=== PATIENT | male | born 1955 | race Caucasian/White ===

== ENCOUNTER → 2018-04-28 09:37 | Outpatient (RCR) | payer OTHER ==
--- NOTE | 2018-04-21 11:52 | PT INITIAL EVALUATION ---
MEDICAL DIAGNOSIS: Vertigo TREATMENT DIAGNOSIS: Same DATE OF ONSET: 10/20/17 SUBJECTIVE: Greg presents to physical therapy with complaints of vertigo that started approximately 6-8 months ago. He reports that the spinning occurs when getting up from the floor and looking up. He reports that the dizziness last for approximately 10-15 seconds and then resolves itself. Furthermore, he reports that it makes him feel wheezy following an episode of dizziness. REHAB PROBLEM LIST: Decreased Function Decreased ADL's PREVIOUS MEDICAL HISTORY: See EMR OCCUPATION: [place] [employer] of [employer] OBJECTIVE: Special Tests: Special Tests: (-) OCULOMOTOR/VESTIBULAR TESTING: Spontaneous Nystagmus: Absent VOR Head Thrust (horizontal canal function): R: Negative, L: Negative Gaze- Evoked Nystagmus with fixation present:Absent VOR Head Thrust (posterior canal function): R: negative, L: negative Posterior Horizontal Head-Shaking Nystagmus ( - ) Gaze-Evoked Nystagmus with fixation suppressed: absent Smooth Pursuit Saccades VOR Cancellation: Normal POSITIONING TEST: Left Hallpike - Right Hallpike - Roll Test R: +, L: + Mobility: Independent ASSESSMENT: Greg will benefit from skilled physical therapy addressing the listed impairments to improve function and QOL. Based on his examination, it appears that his L and R horizontal canals are affected. He is independent on his home exercise program and we will see him next week for a follow up visit. Short Term Goals 3 weeks: Pt will be able to move his head into cervical extension, cervical rotation to the R and L, and get up from the floor with 0/10 dizziness to improve function and QOL. 3 weeks: Pt will be able to perform supine to sit to standing transfers and ambulate with 0/10 dizziness to improve function and QOL. Patient's Goals get off the floor without any spinning PLAN: Patient to be seen for Neuromuscular Re-ed Home Exercise Program 2x/Week for 3 weeks If you have any questions, comments, or concerns about this report or plan, please contact me at . Thank you, Luke Valdes, PT, DPT [facility]
[~2018-04-28 09:37] MED LIST: BACDS PO; CYCL10TA29 PO; IBU600 PO; LOR5/325 PO; METH4TAB66 PO; MULT1CAP53 PO; MULT1CAP59 PO; PEN250L PO; PER PO; SAW/1TAB2; vit D3
--- NOTE | 2018-04-28 16:46 | PT PLAN OF CARE ---
Physician: Direct Access Patient is being seen: X 2 visits Therapist: Luke Valdes PT, [facility] Medical Diagnosis: Vertigo Treatment Diagnosis: Same Date of Onset: 10/20/17 Date of Initial Evaluation: 04/21/18 Date patient was last seen: 04/28/18 Number of treatments: 2 Number of cancellations/No shows: 0 INTERVENTIONS: Neuromuscular Re-ed Home Exercise Program GOALS: 3 weeks: Pt will be able to move his head into cervical extension, cervical rotation to the R and L, and get up from the floor with 0/10 dizziness to improve function and QOL. MET 3 weeks: Pt will be able to perform supine to sit to standing transfers and ambulate with 0/10 dizziness to improve function and QOL. MET PATIENT'S GOAL: get off the floor without any spinning: MET Status of Patient's Goals: Met Patient Compliance: Excellent Prognosis: Excellent Reasons for continuing therapy: This is a discharge note for Greg Darling. He reports that he is doing well. He denies any vertigo. He feels like he is 95% back to normal. He demonstrated clear horizontal, anterior, and posterior canals. He continues to be independent on his home exercise program. He was instructed to continue until no vertigo has been felt for 24 hours and then he can discharged the vertigo exercises. He has met all of his goals. He is independent on the home exercise program. As a result, he will be discharged from PT. Special Tests: Special Tests: (-) OCULOMOTOR/VESTIBULAR TESTING: Spontaneous Nystagmus: Absent VOR Head Thrust (horizontal canal function): R: Negative, L: Negative Gaze- Evoked Nystagmus with fixation present:Absent VOR Head Thrust (posterior canal function): R: negative, L: negative Posterior Horizontal Head-Shaking Nystagmus ( - ) Gaze-Evoked Nystagmus with fixation suppressed: absent Smooth Pursuit Saccades VOR Cancellation: Normal POSITIONING TEST: Left Hallpike - Right Hallpike - Roll Test R: -, L: - Mobility: Independent If you have any questions, please contact me at [phone]. Thank you, Luke Valdes, PT, DPT [facility]
== END | disposition home or self-care (01) ==
LOC: PT 04-21 11:00
PROVIDERS: ATTEND Family Medicine
DX: H81.10 Benign paroxysmal vertigo, unspecified ear (principal)
CPT/HCPCS: 97161

== ENCOUNTER → 2018-08-11 | Outpatient (CLI) | payer OTHER ==
[~2018-08-11] MED LIST changes: +AMOX-559 PO; +PSEU120T69 PO; +TAMS0.4C70 PO
== END ==
LOC: LAB 12:00
PROVIDERS: ATTEND Urology
DX: N40.0 Benign prostatic hyperplasia without lower urinary tract symptoms (principal)
CPT/HCPCS: 36415; 84154

== ENCOUNTER → 2018-10-10 | Outpatient (CLI) | payer OTHER | LOC: LAB 09:25 | PROVIDERS: ATTEND Family Medicine | DX: M79.10 Myalgia, unspecified site (principal); M25.50 Pain in unspecified joint | CPT/HCPCS: 87502 ==

== ENCOUNTER → 2018-12-27 | Outpatient (CLI) | payer OTHER | LOC: LAB 08:34 | PROVIDERS: ATTEND Urology | DX: R97.20 Elevated prostate specific antigen [PSA] (principal) | CPT/HCPCS: 36415; 84153; 84154 ==